=== PATIENT | male | born 1950 | race Caucasian/White ===

== ENCOUNTER 2017-03-03 10:24 | Outpatient (CLI) | payer MEDICARE, BC, OTHER | END 2017-03-03 10:25 | disposition home or self-care (01) | LOC: SC 10:24 | PROVIDERS: ATTEND Internal Medicine Pulmonary Disease | DX: G47.33 Obstructive sleep apnea (adult) (pediatric) (principal) | CPT/HCPCS: 99203; G0463; 99212 ==

== ENCOUNTER 2018-01-08 14:10 | Outpatient (CLI) | payer MEDICARE, OTHER | END 2018-01-08 14:11 | disposition home or self-care (01) | LOC: SC 14:10 | PROVIDERS: ATTEND Internal Medicine Pulmonary Disease | DX: G47.33 Obstructive sleep apnea (adult) (pediatric) (principal) | CPT/HCPCS: 99213; G0463; 99212 ==

== ENCOUNTER 2018-09-10 12:05 | Outpatient (CLI) | payer MEDICARE, OTHER ==
--- NOTE | 2018-09-11 09:44 | MRI Report ---
Reason: OTHER SHOULDER LESIONS, RIGHT SHOULDER Procedure Date: 09/10/2018 Accession Number: [id number] / [id number] Procedure: MRI - Shoulder RT W/O CPT Code: FULL RESULT: EXAM: RIGHT SHOULDER MRI WITHOUT CONTRAST EXAM DATE: 09/10/2018 12:51 PM. CLINICAL HISTORY: Right shoulder pain. COMPARISON: None. TECHNIQUE: Multiplanar, multisequence T1-weighted and fluid-sensitive sequences of the shoulder without contrast. Other: None. FINDINGS: Acromioclavicular Region: The acromion is type II. The acromioclavicular joint is unremarkable. The coracoacromial and coracoclavicular ligaments are intact. Small amount of fluid at the subacromial subdeltoid bursa. Glenohumeral Region: No subluxation. No effusion or loose bodies. The articular cartilage is unremarkable. The superior and middle glenohumeral ligaments are unremarkable. Mild edema and thickening at the inferior glenohumeral ligament complex. Bone Marrow: No fracture, marrow edema or bone lesions. Labrum: Small, ill-defined, slightly T2 hyperintense focus at the posterior superior aspect of the labrum. Musculature/Rotator Cuff: Mild supraspinatus tendinosis. Infraspinatus, teres minor, and subscapularis tendons are unremarkable. No rotator cuff tear. No edema or fatty atrophy. Biceps Tendon: The long head of the biceps tendon and biceps sulaiman are intact. Other: The subcutaneous tissues are unremarkable. IMPRESSION: 1. Mild supraspinatus tendinosis. No rotator cuff tear. 2. Small, ill-defined, slightly T2 hyperintense focus at the posterior superior aspect of the labrum which may represent degeneration, fraying, or a tear. If warranted, further evaluation with a follow-up MR arthrogram exam may be helpful. 3. Mild edema and thickening at the inferior glenohumeral ligament complex which may represent inflammation or injury. 4. Small amount of fluid at the subacromial subdeltoid bursa. RADIA
== END 2018-09-10 12:06 | disposition home or self-care (01) ==
LOC: DI 12:05
PROVIDERS: ATTEND Specialist
DX: M75.91 Shoulder lesion, unspecified, right shoulder (principal); M25.411 Effusion, right shoulder

== ENCOUNTER 2019-08-02 14:05 | Outpatient (CLI) | payer MEDICARE, OTHER ==
--- NOTE | 2019-08-02 23:02 | SLEEP CARE CONSULTATION ---
Information from patient questionnaire entered by Sindy Zapata. I have reviewed and concur with the information entered by Sindy Zapata. This document represents the service I personally performed and the decisions made by me, Ady Gibson MD, [facility]. History of Present Illness Previous diagnosis: Moderate, Obstructive Sleep Apnea-Hypopnea Syndrome AHI: 36.8 (in 2013) Reason for follow up: annual (last seen 2018) Equipment type: CPAP Equipment obtained from: [facility] additional information: To minimize the risk of COVID-19 exposure, we have the option to conduct your visit with me over the phone. I will be able to discuss your health and offer medical advice. If you agree, we will bill your insurance. Do you agree to this telephone service: YES. HPI: Mr. Michel was called for an annual follow up of nasal CPAP therapy. He was diagnosed to have severe obstructive sleep apnea-hypopnea syndrome. The patient wears a Respironics DreamWear nasal cushion mask. He reports using the device nightly and all through the night. The compliance report shows usage in 178 nights out of the past 180 nights, averaging 7.9 hours a night. The > 4 hour compliance rate for the past 180 days is 99%. He complained of not getting any supplies but no particular problem with the device such as soreness on the face, dry nose, epistaxis, nasal congestion or headache. He thinks that the pressure of 8 15 cmH2O is comfortable. On the CPAP therapy he notices improvement in his sleep quality, and that he wakes up feeling fresher in the morning and more awake/alert during the day. The average residual AHI is 4.8; and average time in large leak per day is 0. The 90th percentile pressure is 9.5 cmH2O. CPAP Compliance Data - Data Reviewed with Patient Average duration of nightly device use: 8 Compliance rate %: 98.9 (180 days) Current pressure setting (cmH2O): 8-15 Humidity settin Heated hose settin Average residual AHI: 4.8 Average large leak: 0 Subjective Initial [place] Sleepiness Scale score: 4 Allergies and Home Medications Drug allergies reviewed: Yes Home medication list reviewed: Yes Review of Systems Review of systems same as previous: Yes Physical Exam Height: 5 ft 10 in Impression and Plan IMPRESSION: 1. Obstructive Sleep Apnea-Hypopnea Syndrome, severe, with the patient doing well on nasal CPAP therapy. He has excellent compliance and significant clini alfonzo improvement. The current pressure appears effective and comfortable. His mask fits well. Overall, he is very satisfied with treatment and plans to continue with it long-term. I will switch him to a different durable medical supplier so that he may continue to get supplies. PLAN: 1. Continue with autoCPAP set at 8 - 15 cmH2O. 2. Prescription made for supplies. 3. Return in one year for follow up or earlier if there is any problem with the treatment. I spent 100% of the 12 minute phone call with the patient with greater than 50% of this spent counseling the patient and coordination of care.
== END 2019-08-02 14:06 | disposition home or self-care (01) ==
LOC: SC 14:05
PROVIDERS: ATTEND Internal Medicine Pulmonary Disease
DX: G47.33 Obstructive sleep apnea (adult) (pediatric) (principal)

== ENCOUNTER 2020-07-17 13:05 | Outpatient (CLI) | payer MEDICARE, OTHER ==
--- NOTE | 2020-07-17 13:28 | SLEEP CARE CONSULTATION ---
Information from patient questionnaire entered by Mitchel Reeves. I have reviewed and concur with the information entered by Mitchel Reeves. This document represents the service I personally performed and the decisions made by me, Ady Gibson MD, [facility]. History of Present Illness Service Date and Time: 07/17/2020 1305 Previous diagnosis: Moderate, Obstructive Sleep Apnea-Hypopnea Syndrome AHI: 36.8 (in 2012) Reason for follow up: annual (Last seen 07/2019) Equipment type: CPAP Equipment obtained from: [employer] ([place]) Mask style: Nasal Year and Where: 2012 [facility] additional information: HPI: Mr. Michel was diagnosed to have severe obstructive sleep apnea-hypopnea syndrome and returns today for annual follow up of CPAP therapy. The patient purchased the device from [employer] in [place] but is getting supplies from [employer]. He wears a Respironics DreamWear nasal cushion mask. He continues to use the device nightly and all through the night. The compliance report shows that he uses the device 362 nights out of the past 365 nights, averaging 7.6 hours a night. He complains of no particular problem with the device such as soreness on the face, dry nose, epistaxis, nasal congestion or headache. He thinks that the pressure of 8 - 15 cmH2O is comfortable. On the CPAP therapy he notices improvement in his sleep quality, and that he wakes up feeling fresher in the morning and more awake/alert during the day. [place] Sleepiness Scale score is 4. He sleeps alone. The average residual AHI is 4.4; and average time in large leak per day is 2 minutes. The 90th percentile pressure is 9.5 cmH2O. CPAP Compliance Data - Data Reviewed with Patient Average duration of nightly device use: 7 h 36 min Compliance rate %: 98.3 Current pressure setting (cmH2O): 8-15 Humidity settin Heated hose settin Average residual AHI: 3.7 Average large leak: 3 min Subjective Current pressure setting perceived as: comfortable Initial [place] Sleepiness Scale score: 4 (in 2016) Current [place] Sleepiness Scale score: 5 Allergies and Home Medications Drug allergies reviewed: Yes Home medication list reviewed: Yes Review of Systems Review of systems same as previous: Yes Physical Exam Height: 5 ft 10 in Weight: 191 lb Body Mass Index: 27.3 BMI Classification: Overweight Impression and Plan IMPRESSION: 1. Obstructive Sleep Apnea-Hypopnea Syndrome, severe, with the patient continuing to do well on nasal CPAP therapy. He has excellent compliance and significant clinical benefits. The current pressure appears effective and comfortable. Overall, he is very satisfied with treatment and plans to continue with it long-term. No adjustment is necessary today. PLAN: 1. Continue with autoCPAP set at 8 - 15 cmH2O. 2. Return for follow up in a year or earlier if there is any problem. Visit Type: In Office Time Spent with Patient (minutes): 15 Provider Statement: I spent 100% of the Face to Face Visit with the patient with greater than 50% spent counseling the patient and coordination of care.
== END 2020-07-17 13:06 | disposition home or self-care (01) ==
LOC: SC 13:05
PROVIDERS: ATTEND Internal Medicine Pulmonary Disease
DX: G47.33 Obstructive sleep apnea (adult) (pediatric) (principal); E66.3 Overweight; Z68.27 Body mass index [BMI] 27.0-27.9, adult
CPT/HCPCS: 99212; G0463

== ENCOUNTER 2021-03-22 12:31 | Outpatient (CLI) | payer MEDICARE, OTHER ==
--- NOTE | 2021-03-22 14:12 | CT Report ---
PROCEDURE: HEAD WO INDICATIONS: HEADACHE TECHNIQUE: Noncontrast 4.5 mm thick angled axial sections acquired from the foramen magnum to the vertex. For r adiation dose reduction, the following was used: automated exposure control, adjustment of mA and/or kV according to patient size. COMPARISON: MRI brain/orbits 05/02/2015 FINDINGS: Image quality: Excellent. The ventricular system and cortical sulci demonstrate atrophy, consistent for patient's stated age. There are areas of hypodensity in the periventricular and subcortical white matter. There is no acut e intra or extra-axial fluid collection. No acute hemorrhage, mass lesion or midline shift. Brainst em is unremarkable. Globes are symmetrical. Sinuses are aerated. Osseous structures are intact. IMPRESSION: 1. No acute intracranial process. 2. Mild atrophy and chronic microvascular ischemic changes. Reviewed by: Allegra Sanchez MD on 03/22/2021 2:11 PM PST Approved by: Allegra Sanchez MD on 03/22/2021 2:11 PM PST Station ID: [id number]
== END 2021-03-22 12:32 | disposition home or self-care (01) ==
LOC: DI 12:31
PROVIDERS: ATTEND Student in an Organized Health Care Education/Training Program
DX: G44.52 New daily persistent headache (NDPH) (principal)

== ENCOUNTER 2022-01-14 11:11 | Outpatient (CLI) | payer MEDICARE, OTHER ==
[2022-01-14 22:01] VITALS: BP 126/68
--- NOTE | 2022-01-14 22:01 | SLEEP CARE CONSULTATION ---
Information from patient questionnaire entered by Ava Gonzales. I have reviewed and concur with the information entered by Ava Gonzales. This document represents the service I personally performed and the decisions made by me, Ady Gibson MD, [facility]. History of Present Illness Service Date and Time: 01/14/2022 1111 Previous diagnosis: Moderate, Obstructive Sleep Apnea-Hypopnea Syndrome AHI: 36.8 (in 2012) Reason for follow up: other (2 MONTH F/U, LAST SEEN 11/23) Equipment type: CPAP (DREAMSTATION) Equipment obtained from: [employer] ([place]) Mask style: Nasal Year and Where: 2012 [facility] HPI additional information: Mr. Michel was diagnosed to have severe obstructive sleep apnea-hypopnea syndrome and returns today for a follow up of CPAP therapy after the pressure was lowered from 8 15 to 6 12 cmH2O for elevated central apnea index. The patient purchased the device from [employer] in [place] but is getting supplies from [employer]. He wears a Respironics DreamWear nasal cushion mask. He continues to use the device nightly and all through the night. The compliance report shows that he uses the device 60 nights out of the past 60 nights, averaging 7.6 hours a night. He complains of no particular problem with the device such as soreness on the face, dry nose, epistaxis, nasal congestion or headache. He thinks that the pressure of 6 - 12 cmH2O is more comfortable. On the CPAP therapy he notices improvement in his sleep quality, and that he wakes up feeling fresher in the morning and more awake/alert during the day. [place] Sleepiness Scale score is 3. He sleeps alone. The average residual AHI is 8.3 (was 6.5); and average time in large leak per day is 31 (was 11) minutes. The 90th percentile pressure is 9.9 cmH2O. His Respironics DreamStation is 4 years old. He says that [employer] notified him that a replacement machine is on its way. Sleep Study - Results Year and Where: 2012 [facility] CPAP Compliance Data - Data Reviewed with Patient Average duration of nightly device use: 7 hours, 37 mins, 55 seconds Compliance rate %: 99.4 (07/15/21 to 01/10/22) Current pressure setting (cmH2O): 8-15 Average residual AHI: 8.7 Subjective Initial [place] Sleepiness Scale score: 4 (in 2017) Current [place] Sleepiness Scale score: 3 (01/14/22) Allergies and Home Medications Drug allergies reviewed: Yes Home medication list reviewed: Yes Review of Systems Review of systems same as previous: Yes Physical Exam Vital signs obtained and entered by: MARY WILKINS Blood Pressure: 126/68 (left arm ) Cuff size: regular Heart Rate: 64 O2 Saturation: 98 Height: 5 ft 10 in Weight: 196 lb Body Mass Index: 28.1 BMI Classification: Overweight Impression and Plan IMPRESSION: 1. Obstructive Sleep Apnea-Hypopnea Syndrome, severe, with the patient continuing to do well on nasal CPAP therapy. He has excellent compliance and significant clinical benefits. The current pressure appears less effective. Overall, he is very satisfied with treatment and plans to continue with it long-term. His [employer] account shows that he now has a new DreamStation 2. PLAN: 1. Lower autoCPAP further to 5 - 10 cmH2O. 2. Set his new [employer] Respironics DreamStation 2 to 5 10 cmH2O. 3. Return for a follow up in 3 months to recheck the residual AHI. Adjust device pressure to (cmH2O): 5-10 Follow up with Sleep Care in: 3 months Visit Type: In Office Time Spent with Patient (minutes): 20 Provider Statement: I spent 100% of the Face to Face Visit with the patient with greater than 50% spent counseling the patient and coordination of care.
== END 2022-01-14 11:12 | disposition home or self-care (01) ==
LOC: SC 11:11
PROVIDERS: ATTEND Internal Medicine Pulmonary Disease
DX: G47.33 Obstructive sleep apnea (adult) (pediatric) (principal)
CPT/HCPCS: 99212; G0463

== ENCOUNTER 2022-04-22 10:09 | Outpatient (CLI) | payer MEDICARE, OTHER ==
[2022-04-22 15:33] VITALS: BP 110/70
--- NOTE | 2022-04-22 15:33 | SLEEP CARE CONSULTATION ---
Information from patient questionnaire entered by Real Srinivasan. I have reviewed and concur with the information entered by Real Srinivasan. This document represents the service I personally performed and the decisions made by me, Ady Gibson MD, [facility]. History of Present Illness Service Date and Time: 04/22/2022 1009 Previous diagnosis: Moderate, Obstructive Sleep Apnea-Hypopnea Syndrome AHI: 36.8 (in 2012) Reason for follow up: three month (F/U DREAM STATION ) Equipment type: CPAP Equipment obtained from: [employer] ([place]) Mask style: Nasal Year and Where: 2012 [facility] HPI additional information: Mr. Michel was diagnosed to have severe obstructive sleep apnea-hypopnea syndr ome and returns today for a follow up of CPAP therapy after the pressure was lowered from 8 15 to 6 12 cmH2O and to 5 10 cmH2O for elevated central apnea index. The patient purchased the device from [employer] in [place] but is getting supplies from [employer]. He wears a [employer] DreamWear nasal cushion mask. He continues to use the device nightly and all through the night. The compliance report shows that he uses the device 90 nights out of the past 90 nights, averaging 7.9 hours a night. He complains of no particular problem with the device such as soreness on the face, dry nose, epistaxis, nasal congestion or headache. He thinks that the pressure of 5 10 (was 6 12) cmH2O is more comfortable. On the CPAP therapy he notices improvement in his sleep quality, and that he wakes up feeling fresher in the morning and more awake/alert during the day. [place] Sleepiness Scale score is 3. He sleeps alone. The average residual AHI is 8.3 (was 6.5), mostly hypopneas; and average time in large leak per day is 1.5 (was 31) minutes. The 90th percentile pressure is 9.8 cmH2O. Sleep Study - Results Year and Where: 2012 [facility] CPAP Compliance Data - Data Reviewed with Patient Average duration of nightly device use: 7HRS, 54MIN, 16SEC Compliance rate %: 97.8 (01/19/2022-04/18/2022) Current pressure setting (cmH2O): 5-10 Average residual AHI: 9.4 Subjective Initial [place] Sleepiness Scale score: 4 (in 2016) Current [place] Sleepiness Scale score: 3 (2021) Allergies and Home Medications Drug allergies reviewed: Yes Home medication list reviewed: Yes Review of Systems Review of systems same as previous: Yes Physical Exam Vital signs obtained and entered by: REAL Willams [place] Blood Pressure: 110/70 (LEFT ARM) Cuff size: regular Heart Rate: 68 O2 Saturation: 98 Height: 5 ft 10 in Weight: 204 lb Body Mass Index: 29.2 BMI Classification: Overweight Impression and Plan IMPRESSION: 1. Obstructive Sleep Apnea-Hypopnea Syndrome, severe, with the patient continuing to do well on nasal CPAP therapy. He has excellent compliance and significant clinical benefits. The current pressure appears less effective. Overall, he is very satisfied with treatment and plans to continue with it long-term. I will raise the pressure range a little. PLAN: 1. Increase autoCPAP to 6 - 12 cmH2O via the modem. 2. Return for a follow up in 3 months to recheck the residual AHI. Adjust device pressure to (cmH2O): 6 - 12 Follow up with Sleep Care in: 3 months Visit Type: In Office Time Spent with Patient (minutes): 15 Provider Statement: I spent 100% of the Face to Face Visit with the patient with greater than 50% spent counseling the patient and coordination of care.
== END 2022-04-22 10:10 | disposition home or self-care (01) ==
LOC: SC 10:09
PROVIDERS: ATTEND Internal Medicine Pulmonary Disease
DX: G47.33 Obstructive sleep apnea (adult) (pediatric) (principal)
CPT/HCPCS: 99212; G0463

== ENCOUNTER 2022-07-15 10:05 | Outpatient (CLI) | payer MEDICARE, OTHER ==
[2022-07-15 16:47] VITALS: BP 112/60
--- NOTE | 2022-07-15 16:47 | SLEEP CARE CONSULTATION ---
Information from patient questionnaire entered by Real Srinivasan. I have reviewed and concur with the information entered by Real Srinivasan. This document represents the service I personally performed and the decisions made by me, Ady Gibson MD, [facility]. History of Present Illness Service Date and Time: 07/15/2022 1005 Previous diagnosis: Moderate, Obstructive Sleep Apnea-Hypopnea Syndrome AHI: 36.8 (in 2012) Reason for follow up: three month (F/U) Equipment type: CPAP (DREAMSTATION) Equipment obtained from: [email or web address] ([place]) Mask style: Nasal Year and Where: 2012 [facility] HPI additional information: Mr. Michel was diagnosed to have severe obstructive sleep apnea-hypopnea syndr ome and returns today for a follow up of CPAP therapy after the pressure was raised 6 12 cmH2O for an elevated residual AHI of 8.3. The patient purchased the device from [employer] in [place] but is getting supplies from [email or web address]. He wears a Respironics DreamWear nasal cushion mask. He continues to use the device nightly and all through the night. The compliance report shows that he uses the device 89 nights out of the past 90 nights, averaging 8.1 hours a night. He complains of no particular problem with the device such as soreness on the face, dry nose, epistaxis, nasal congestion or headache. He thinks that the pressure of 6 12 cmH2O is comfortable. On the CPAP therapy he notices improvement in his sleep quality, and that he wakes up feeling fresher in the morning and more awake/alert during the day. [place] Sleepiness Scale score is 4. He sleeps alone. The average residual AHI is now 10.5 mostly hypopneas; and average time in large leak per day is 1.5 (was 31) minutes. The 90th percentile pressure is 9.8 cmH2O. Sleep Study - Results Year and Where: 2012 [facility] CPAP Compliance Data - Data Reviewed with Patient Average duration of nightly device use: 8HRS 6MIN 34SEC Compliance rate %: 97.8 (04/13/22-07/11/22) Current pressure setting (cmH2O): 6-12 Average residual AHI: 10.5 Subjective Initial [place] Sleepiness Scale score: 4 (in 2016) Current [place] Sleepiness Scale score: 4 (07/15/22) Allergies and Home Medications Allergy and home medication list: Allergies peanut Allergy (Verified 04/22/22 10:28) Sulfa (Sulfonamide Antibiotics) Allergy (Verified 04/22/22 10:28) Review of Systems Review of systems same as previous: Yes Physical Exam Vital signs obtained and entered by: REAL Willams MA Blood Pressure: 112/60 (LEFT ARM) Cuff size: regular Heart Rate: 71 O2 Saturation: 98 Height: 5 ft 10 in Weight: 205 lb 9.6 oz Body Mass Index: 29.5 BMI Classification: Overweight Impression and Plan IMPRESSION: 1. Obstructive Sleep Apnea-Hypopnea Syndrome, severe (AHI was 36.8 at [facility] in [place] in 2012), with the patient continuing to do well on nasal CPAP therapy. He has excellent compliance and significant clinical benefits. The current pressure still appears slightly ineffective. Overall, he is very satisfied with treatment and plans to continue with it long-term. I will have him come in for a manual CPAP/BiPAP titration study when we have replacement machines from [employer]. PLAN: 1. Leave autoCPAP at 6 - 12 cmH2O. 2. Return for a follow up in 3 months for manual CPAP/BiPAP titration study. Continue with device pressure at (cmH2O): 6 - 12 cmH2O Follow up with Sleep Care in: 3 months (For CPAP titration study) Visit Type: In Office Time Spent with Patient (minutes): 15 Provider Statement: I spent 100% of the Face to Face Visit with the patient with greater than 50% spent counseling the patient and coordination of care.
== END 2022-07-15 10:06 | disposition home or self-care (01) ==
LOC: SC 10:05
PROVIDERS: ATTEND Internal Medicine Pulmonary Disease
DX: G47.33 Obstructive sleep apnea (adult) (pediatric) (principal); E66.3 Overweight; Z68.29 Body mass index [BMI] 29.0-29.9, adult
CPT/HCPCS: 99212

== ENCOUNTER 2022-12-03 20:34 | Outpatient (CLI) | payer MEDICARE, OTHER | END 2022-12-03 20:35 | disposition home or self-care (01) | LOC: SC 20:34 | PROVIDERS: ATTEND Internal Medicine Pulmonary Disease | DX: G47.33 Obstructive sleep apnea (adult) (pediatric) (principal); G47.61 Periodic limb movement disorder | CPT/HCPCS: 95810 ==

== ENCOUNTER 2022-12-23 11:25 | Outpatient (CLI) | payer MEDICARE, OTHER ==
--- NOTE | 2022-12-23 12:23 | SLEEP CARE CONSULTATION ---
Information from patient questionnaire entered by Real Srinivasan. I have reviewed and concur with the information entered by Real Srinivasan. This document represents the service I personally performed and the decisions made by me, Ady Gibson MD, [facility]. History of Present Illness Service Date and Time: 12/23/2022 1125 Initial [place] Sleepiness Scale score: 4 (in 2017) Current [place] Sleepiness Scale score: 7 (12/23/22) Additional HPI information: Mr. Michel returns for follow up of the sleep study (a manual CPAP titration study) he had on 12/03/22. The polysomnography showed that CPAP was initiated at 5 cmH2O and titrated up to CPAP at 9 cmH2O. CPAP at 6 cmH2O appeared to be optimal (AHI of 0 per hour on the pressure). There was supine REM sleep on the pressure. Oxygen saturation was normal throughout the night. The patient appeared to have tolerated positive airway pressure therapy fairly well. The patients sleep efficiency was reduced due to three prolonged awakenings during the night. The sleep architecture was abnormal for sleep fragmentation and reduced amount of time spent in REM and slow wave sleep (N3). There was severe periodic leg movement of sleep contributing to the sleep fragmentation. Cardiac rhythm was normal sinus rhythm without significant arrhythmia. No abnormal behavior (parasomnia) observed during the night. The patient was informed of these findings. I explained to him that the current pressure is more than adequate. Presently his CPAP is set at 6 - 12 cmH2O. He told me that he has been using the device every night and pretty much all nightlong. He continues to have significant improvement in his original symptoms. Sleep Study - Results Type of Sleep Study: Polysomnography (TITRATION STUDY F/U 12/03/22) Year and Where: 2012 [facility] Allergies and Home Medications Drug allergies reviewed: Yes Home medication list reviewed: Yes Allergy and home medication list: Allergies peanut Allergy (Verified 12/20/22 15:17) Sulfa (Sulfonamide Antibiotics) Allergy (Verified 12/20/22 15:17) Review of Systems Review of systems same as previous: Yes Physical Exam Vital signs obtained and entered by: REAL Willams MA Blood Pressure: 110/60 (LEFT ARM) Cuff size: regular Heart Rate: 75 O2 Saturation: 99 Height: 5 ft 10 in Weight: 204 lb 12.8 oz Body Mass Index: 29.3 BMI Classification: Overweight Impression and Plan IMPRESSION: 1. Obstructive Sleep Apnea-Hypopnea Syndrome, severe, adequately controlled with CPAP of 6 cmH2O. So far, he has been doing well on the treatment and continues to have good treatment compliance. Based on the titration study, I will adjust the pressure to 6 - 8 cmH2O. The high residual AHI reported by his machine is most likely erroneous. PLAN: 1. Lower autoCPAP to 6 - 8 cmH2O. Return for a follow up in a year or earlier if there is any problem. Adjust device pressure to (cmH2O): 6-8 Follow up with Sleep Care in: 1 year Visit Type: In Office Time Spent with Patient (minutes): 15 Provider Statement: I spent 100% of the Face to Face Visit with the patient with greater than 50% spent counseling the patient and coordination of care.
[2022-12-23 12:30] VITALS: BP 110/60; O2SAT 99
== END 2022-12-23 11:26 | disposition home or self-care (01) ==
LOC: SC 11:25
PROVIDERS: ATTEND Internal Medicine Pulmonary Disease
DX: G47.33 Obstructive sleep apnea (adult) (pediatric) (principal); E66.3 Overweight; Z68.29 Body mass index [BMI] 29.0-29.9, adult
CPT/HCPCS: 99212; G0463

== ENCOUNTER 2023-12-26 15:56 | Outpatient (CLI) | payer MEDICARE, OTHER ==
--- NOTE | 2023-12-26 18:21 | Ultrasound Report ---
PROCEDURE: Testicle INDICATIONS: R TESTICULAR PAIN TECHNIQUE: Real-time scanning was performed of the scrotum and testicles, with image documentation. Color and p ulse Doppler interrogation was performed of both testicles. COMPARISON: None. FINDINGS: Right: Testicle is normal in size at 3.2 x 1.5 x 2.8 cm, and homogenous in echotexture. Intratesticu lar cyst is seen measuring 7 x 6 mm. There is no definite solid component. Epididymis is normal in ov erall size and morphology. Small hydrocele. No varicoceles. Overlying scrotal skin is normal in thi ckness. Left: Testicle is normal in size at 2.7 x 2 x 2.6 cm, and homogeneous in echotexture. Epididymis is normal in overall size and morphology. No hydrocele. No varicoceles. Overlying scrotal skin is nor mal in thickness. Doppler: Color and pulse Doppler demonstrate normal and symmetric arterial flow in both testicles. IMPRESSION: Small right hydrocele. Incidentally noted 7 mm right intratesticular cyst of uncertain etiology, no definite solid component identified. No evidence of acute torsion. Reviewed by: Tenzin Soliman MD on 12/26/2023 6:19 PM PDT Approved by: Tenzin Soliman MD on 12/26/2023 6:19 PM PDT Station ID: [id number]
== END 2023-12-26 15:57 | disposition home or self-care (01) ==
LOC: DI 15:56
PROVIDERS: ATTEND Family Medicine
DX: N43.3 Hydrocele, unspecified (principal); N44.2 Benign cyst of testis